=== PATIENT | female | born 2000 | race Caucasian/White ===

== ENCOUNTER 2023-11-21 14:04 | Inpatient (IN) | payer MEDICAID ==
[~2023-11-21] VITALS: Ht 167.6 cm; Wt 58.0 kg
[~2023-11-21 14:04] MED LIST: SACC250C PO
[2023-11-21] MEDS ORDERED: BUPIVAcaine 0.5% W/EPI /PF 10ml vial IJ STA (14:48)
[2023-11-21 15:00] LABS: BASOPHILS % (AUTO) 0.3 % (0-1); EOSINOPHILS # (AUTO) 0.1 X10'3 (0-0.9); EOSINOPHILS % (AUTO) 1.5 % (0-6); HEMATOCRIT 41.9 % (35.0-45.0); HEMOGLOBIN 14.7 g/dl (12.0-16.0); LYMPHOCYTES # (AUTO) 2.2 X10'3 (1.1-4.8); MEAN CORPUSCULAR HEMOGLOBIN 31.6 PG (27.0-31.0); MEAN CORPUSCULAR HGB CONC 35.2 g/dL (33.0-36.5); MEAN CORPUSCULAR VOLUME 89.8 FL (78-98); MEAN PLATELET VOLUME 7.6 FL (7.4-10.4); MONOCYTES # (AUTO) 0.4 X10'3 (0-0.9); MONOCYTES % (AUTO) 4.9 % (2-12); NEUTROPHILS # (AUTO) 5.4 X10'3 (1.8-7.7); NEUTROPHILS % (AUTO) 66.3 % (42-75); PLATELET COUNT 323 X10'3 (140-440); RED BLOOD COUNT 4.66 X10'6 (4.20-5.60); RED CELL DISTRIBUTION WIDTH 12.7 % (11.5-14.5); WHITE BLOOD COUNT 8.2 X10'3 (4.5-11.0)
[2023-11-21] MEDS ORDERED: BUPIVAcaine 0.25% w/Epi /PF 30ml vial IJ STA (15:04)
[2023-11-21 15:15] LABS: ALANINE AMINOTRANSFERASE 20 U/L (12-78); ALBUMIN 4.3 G/DL (3.4-5.0); ALBUMIN/GLOBULIN RATIO 1.2 (1.1-1.5); ALKALINE PHOSPHATASE 63 IU/L (46-116); ANION GAP 8 (8-16); ASPARTATE AMINO TRANSFERASE 11 U/L (10-37); BLOOD UREA NITROGEN 15 MG/DL (7-18); BUN/CREATININE RATIO 17.6 (10.0-20.0); CHLORIDE 104 MMOL/L (99-107); CREATININE 0.85 MG/DL (0.40-0.90); GLUCOSE 82 MG/DL (70-104); POTASSIUM 3.7 MMOL/L (3.5-5.1); SODIUM 139 MMOL/L (135-145); TOTAL CARBON DIOXIDE 27.1 MMOL/L (24-32); TOTAL PROTEIN 7.8 G/DL (6.4-8.2); eCRCL 93 ML/MIN; eGFR 82 ML/MIN
[2023-11-21 15:19] LABS: C-REACTIVE PROTEIN < 0.05 MG/DL (0.0-0.5)
[2023-11-21] MEDS: CefTRIAXone 2gm/D5W 50ml BAG 50 ML IV ONE (15:30)
[2023-11-21] MEDS: normal saline 1000ml 1,000 ML IV ONE (15:30)
[2023-11-21] MEDS: BUPIVAcaine 0.5% W/EPI /PF 30ml vial IJ STA (15:47)
[2023-11-21 15:48] LABS: HCG SERUM QL NEGATIVE
[2023-11-21 18:38] LABS: GLUCOSE,CSF 51 MG/DL (40-75); TOTAL PROTEIN,CSF 55 MG/DL (15-45)
[2023-11-21 18:41] LABS: APPEARANCE,CSF CLEAR; CSF RBC 48 /CU MM (0); CSF SUPERNATANT COLOR COLORLESS; CSF VOLUME 8.5 ML; CSF WBC CT 1 /CU MM (0-5); TUBE# COUNTED 1
[2023-11-21 18:42] LABS: CSF RBC 0 /CU MM (0); CSF WBC CT 1 /CU MM (0-5); TUBE# COUNTED 4
[2023-11-21 18:53] LABS: BILIRUBIN,URINE NEGATIVE (Neg); CLARITY,URINE CLOUDY (Clear); COLOR,URINE YELLOW (Yellow); GLUCOSE, URINE NEGATIVE (Neg); KETONES,URINE 15 mg/dl (Neg); LEUKOCYTE ESTERASE ,URINE NEGATIVE (Neg); NITRITES, URINE NEGATIVE (Neg); OCCULT BLOOD,URINE NEGATIVE (Neg); PROTEIN,URINE NEGATIVE (Neg); UROBILINOGEN,URINE 0.2 E.U/dL (0.2-1.0)
[2023-11-21 19:07] LABS: UA COLLECTION TYPE CLN CATCH MIDSTREAM
[2023-11-21 19:09] LABS: BACTERIA,URINE 2+ /HPF (Neg); MUCUS STRANDS NONE SEEN /LPF (Neg); RBC,URINE 0-2 /HPF (0-2); SQUAMOUS EPITHELIAL CELL,UR MANY /LPF (FEW); TRANSITIONAL EPI CELLS,URINE FEW /HPF; WBC,URINE 0-4 /HPF (0-4)
[2023-11-21] MEDS ORDERED: acetaminophen 1,000mg/100ml IV 100 ML IV PRN (23:30)
[2023-11-21] MEDS ORDERED: magnesium Cl slow-release 64mg tablet PO PRN (23:35)
[2023-11-21] MEDS ORDERED: potassium Cl 20 mEq SR tablet PO PRN ×2 (23:35)
[2023-11-21] MEDS ORDERED: potassium Cl 40MEQ/1/2NS 520ml 520 ML IV PRN (23:35)
[2023-11-21] MEDS ORDERED: magnesium hydroxide 30ml (MOM) UD suspension PO PRN (23:35)
[2023-11-21] MEDS ORDERED: magnesium 4gm in 100ml NS 100 ML IV PRN (23:35)
[2023-11-21] MEDS ORDERED: ondansetron/PF 4mg/2ml inj IV PRN (23:35)
[2023-11-21] MEDS ORDERED: magnesium 2GM in 50ml NS 50 ML IV PRN (23:35)
[2023-11-21] MEDS ORDERED: mag hydrox/Alum hydrox/simeth 30ml oral suspension PO PRN (23:35)
[2023-11-21] MEDS ORDERED: acetaminophen 325mg tablet PO PRN (23:35)
[2023-11-21] MEDS: ketorolac tromethamine 15mg/ml inj. IV ONE (23:47)
[2023-11-21] MEDS: ketorolac trometh. 30mg/ml inj. IV ONE (23:50)
[2023-11-21] MEDS: ringers solution, lacted 1,000 ML IV SCH (23:50)
[2023-11-22 00:52] VITALS: BP 97/51; PULSE 57; RESP 16; TEMP 98.5; O2SAT 98
[2023-11-22] MEDS ORDERED: FERR-28 PO (01:06)
[2023-11-22] MEDS ORDERED: L.AC1CAP6 PO (01:06)
[2023-11-22] MEDS ORDERED: CHOL500049 PO (01:06)
[2023-11-22 01:25] VITALS: RESP 18; O2SAT 97
[2023-11-22 06:00] VITALS: BP 98/47; PULSE 64; RESP 16; TEMP 98.9; O2SAT 96
[2023-11-22] MEDS: K and/or MAG REPLACEMENT MC SCH (07:37)
[2023-11-22 07:39] LABS: BASOPHILS # (AUTO) 0.1 X10'3 (0-0.2); EOSINOPHILS # (AUTO) 0.3 X10'3 (0-0.9); HEMATOCRIT 38.8 % (35.0-45.0); HEMOGLOBIN 13.3 g/dl (12.0-16.0); LYMPHOCYTES # (AUTO) 1.8 X10'3 (1.1-4.8); LYMPHOCYTES % (AUTO) 30.3 % (21-51); MEAN CORPUSCULAR HEMOGLOBIN 30.8 PG (27.0-31.0); MEAN CORPUSCULAR HGB CONC 34.3 g/dL (33.0-36.5); MEAN CORPUSCULAR VOLUME 89.7 FL (78-98); MONOCYTES # (AUTO) 0.4 X10'3 (0-0.9); MONOCYTES % (AUTO) 6.8 % (2-12); NEUTROPHILS # (AUTO) 3.4 X10'3 (1.8-7.7); NEUTROPHILS % (AUTO) 56.9 % (42-75); PLATELET COUNT 297 X10'3 (140-440); RED BLOOD COUNT 4.32 X10'6 (4.20-5.60); RED CELL DISTRIBUTION WIDTH 12.7 % (11.5-14.5)
[2023-11-22] MEDS: docusate sod 100mg capsule PO SCH (07:42)
[2023-11-22 07:45] VITALS: RESP 16; O2SAT 96
[2023-11-22 07:48] LABS: D-DIMER 0.35 MG/L FEU (0-0.50)
[2023-11-22 07:55] LABS: ALANINE AMINOTRANSFERASE 23 U/L (12-78); ALBUMIN 3.1 G/DL (3.4-5.0); ALBUMIN/GLOBULIN RATIO 1.1 (1.1-1.5); ALKALINE PHOSPHATASE 63 IU/L (46-116); ANION GAP 9 (8-16); ASPARTATE AMINO TRANSFERASE 13 U/L (10-37); BILIRUBIN,TOTAL 0.4 MG/DL (0.1-1.0); BLOOD UREA NITROGEN 17 MG/DL (7-18); BUN/CREATININE RATIO 18.1 (10.0-20.0); C-REACTIVE PROTEIN < 0.05 MG/DL (0.0-0.5); CALCIUM 8.2 MG/DL (8.5-10.1); CHLORIDE 108 MMOL/L (99-107); CREATININE 0.94 MG/DL (0.40-0.90); GLUCOSE 85 MG/DL (70-104); MAGNESIUM 1.9 MG/DL (1.5-2.4); PHOSPHORUS 4.9 MG/DL (2.3-4.5); POTASSIUM 3.9 MMOL/L (3.5-5.1); SODIUM 140 MMOL/L (135-145); TOTAL CARBON DIOXIDE 22.9 MMOL/L (24-32); eCRCL 85 ML/MIN; eGFR 73 ML/MIN
[2023-11-22] MEDS ORDERED: GADOTERATE MEGLUMINE 7.5 MMOL/15 ML VIAL IV ONE (09:52)
[2023-11-22 10:00] VITALS: BP 100/63; PULSE 59; RESP 14; TEMP 97.9; O2SAT 99
[2023-11-22] MEDS: cyclobenzaprine 10mg tablet PO ONE (10:15)
== END 2023-11-22 13:40 | disposition home or self-care (01) | DRG 723 ==
LOC: ER 14:05 → ED HOLD 23:34 → EDBEDREQ 11-22 00:10 → ORTHO 4S 11-22 00:50
PROVIDERS: ADMIT Student in an Organized Health Care Education/Training Program; ATTEND Family Medicine
PROC: 009U3ZX Drainage of Spinal Canal, Percutaneous Approach, Diagnostic (ICD-10-PCS; principal; 2023-11-21)
DX: B27.90 Infectious mononucleosis, unspecified without complication (principal); Z79.899 Other long term (current) drug therapy; Z87.891 Personal history of nicotine dependence
CPT/HCPCS: 36415; 70450; 70553; 72125; 80053; 81001; 82945; 83605; 83735; 84100; 84145; 84157; 84703; 85025; 85379; 85651; 86140; 86592; 86617; 86788; 86789; 87015; 87040; 87070; 87081; 87529; 89051; 96365; 99285; A9575; G0378; J0696; J1885; J7030; J7120